=== PATIENT | male | born 1950 | race African-American/Black ===

== ENCOUNTER → 2016-10-30 | Outpatient (CLI) | payer OTHER, MEDICARE ==
[2016-11-01 10:23] LABS: FREE PSA/PSA RATIO 15.7 % (.); PSA FREE 4.36 ng/mL; PSA TOTAL 27.7 ng/mL (0.0-4.0)
== END | disposition home or self-care (01) ==
LOC: LAB 16:04
PROVIDERS: ATTEND Urology
DX: R97.20 Elevated prostate specific antigen [PSA] (principal)
CPT/HCPCS: 36415; 84153; 84154

== ENCOUNTER → 2017-01-15 | Outpatient (CLI) | payer OTHER, MEDICARE | END | disposition home or self-care (01) | LOC: LAB 12:28 | PROVIDERS: ATTEND Psychiatry & Neurology Neurology | DX: I63.9 Cerebral infarction, unspecified (principal) | CPT/HCPCS: 36415; 82607; 82947; 84443; 85049 ==

== ENCOUNTER → 2017-10-21 | Outpatient (CLI) | payer MEDICARE, OTHER ==
[2017-10-21 16:39] LABS: CREATINE KINASE 232 U/L (39-308)
[2017-10-21 16:52] LABS: THYROID STIM HORMONE (TSH) 0.909 uIU/mL (0.358-3.74)
[2017-10-21 16:54] LABS: VITAMIN-B12 841 pg/mL (247-911)
[2017-10-21 17:17] LABS: AMPHETAMINE/METHAMPHETAMINE NEG (NEG); BARBITURATES NEG (NEG); BENZODIAZEPINES NEG (NEG); CANNABINOIDS NEG (NEG); COCAINE NEG (NEG); ETHANOL, URINE NEG (NEG); METHADONE NEG (NEG); OPIATES NEG (NEG); PHENCYCLIDINE NEG (NEG)
== END | disposition home or self-care (01) ==
LOC: LAB 16:08
DX: R53.1 Weakness (principal); Z86.73 Personal history of transient ischemic attack (TIA), and cerebral infarction without residual deficits; Z79.899 Other long term (current) drug therapy
CPT/HCPCS: 36415; 80307; 82306; 82550; 82607; 84443

== ENCOUNTER → 2017-10-29 | Outpatient (CLI) | payer MEDICARE, OTHER | END | disposition home or self-care (01) | LOC: MRI 15:40 | DX: R53.1 Weakness (principal); Z86.73 Personal history of transient ischemic attack (TIA), and cerebral infarction without residual deficits | CPT/HCPCS: 70551 ==

== ENCOUNTER → 2017-11-05 | Outpatient (CLI) | payer MEDICARE, OTHER | END | disposition home or self-care (01) | LOC: RT 10:12 | DX: R41.3 Other amnesia (principal) | CPT/HCPCS: 95816 ==

== ENCOUNTER → 2018-05-04 | Outpatient (CLI) | payer MEDICARE, OTHER ==
[2018-05-04 16:38] LABS: FREE T4 0.85 ng/dL (0.76-1.46); THYROID STIM HORMONE (TSH) 1.317 uIU/mL (0.358-3.74)
[2018-05-04 16:40] LABS: ALBUMIN 3.5 g/dL (3.4-5.0); CALCIUM 9.6 mg/dL (8.5-10.1); CREATININE 1.3 mg/dL (0.7-1.3); POTASSIUM 4.3 mmol/L (3.5-5.1); TOTAL BILIRUBIN 0.2 mg/dL (0.2-1.0); TOTAL PROTEIN 6.9 g/dL (6.4-8.2)
[2018-05-04 17:53] LABS: BARBITURATES NEG (NEG); BENZODIAZEPINES NEG (NEG); CANNABINOIDS NEG (NEG); COCAINE NEG (NEG); METHADONE NEG (NEG); OPIATES NEG (NEG); PHENCYCLIDINE NEG (NEG)
[2018-05-04 17:56] LABS: AMPHETAMINE/METHAMPHETAMINE NEG (NEG)
== END | disposition home or self-care (01) ==
LOC: LAB 15:39
PROVIDERS: ATTEND Psychiatry & Neurology Neurology
DX: R53.1 Weakness (principal); R41.3 Other amnesia; Z86.73 Personal history of transient ischemic attack (TIA), and cerebral infarction without residual deficits; Z79.899 Other long term (current) drug therapy
CPT/HCPCS: 36415; 80053; 80307; 82550; 82607; 84439; 84443; G0479

== ENCOUNTER → 2018-11-13 | Outpatient (CLI) | payer MEDICARE, OTHER ==
--- NOTE | 2018-11-30 19:30 | EEG ---
DATE OF SERVICE: 11/13/2018 EEG NUMBER: [id number]. OBJECTIVE: This is a 68-year-old -[place] male patient with history of memory loss. EEG was requested to evaluate cerebral activity and help rule out seizure. METHODS: Twenty electrodes were applied according to the international 10-20 electrode placement system. EKG monitoring, hyperventilation, intermittent photic stimulation, monopolar and bipolar montages are routinely utilized. The record was obtained on a digital system with video monitoring. FINDINGS: 1. Background: The patient was recorded in the awake, drowsy, and sleep states. The overall background amplitude is 10-40 microvolts. A posterior dominant rhythm of 7-8 Hz is observed. 2. Abnormalities: No specific epileptiform discharge or electrographic seizure is seen. No focal or diffuse slowing. 3. Activation: Hyperventilation was not performed because the patient did not follow the commands. Intermittent photic stimulation was performed with photic driving. IMPRESSION: This electroencephalogram is a mildly abnormal study for the awake, drowsy, and sleep states. The posterior dominant rhythm of 7-8 Hz is mildly slow for age. No focal, lateralizing, specific epileptiform discharge or electrographic seizure is seen. MELISSA ROBERTS MD DR: Mable JOB#: [id number] / [id number] DONNY
== END | disposition home or self-care (01) ==
LOC: RT 09:10
PROVIDERS: ATTEND Psychiatry & Neurology Neurology
DX: R41.3 Other amnesia (principal)
CPT/HCPCS: 95816

== ENCOUNTER → 2019-02-10 | Outpatient (CLI) | payer MEDICARE, OTHER ==
--- NOTE | 2019-02-10 16:13 | RAD ---
CERVICAL SPINE WO CONTRAST DATE: 02/10/2019 2:45 PM INDICATION: Right-sided weakness TECHNIQUE: Multiplanar multisequence magnetic resonance imaging of the cervical spine was performed without administration of intravenous contrast using the standard cervical spine protocol. COMPARISON: None. FINDINGS: Trace retrolisthesis at C3-4. No acute fracture. Mild to moderate multilevel degenerative disc desiccation and disc height loss. No marrow replacing process to suggest malignancy. The spinal cord is normal in signal intensity. On the limited views of the cranial cavity and brain, the cerebellum and leslie have normal morphology and signal characteristics. No Chiari malformation. No soft tissue abnormality. Normal signal voids are present in the vertebral arteries. C2-3: No significant spinal canal stenosis or neural foraminal narrowing. C3-4: Disc osteophyte complex. Uncovertebral hypertrophy. Ligamentum flavum thickening. Moderate spinal stenosis. Mild bilateral neural foraminal narrowing. C4-5: Disc osteophyte compresses. Uncovertebral hypertrophy. Mild right and moderate left neural foraminal narrowing. Mild to moderate spinal stenosis. C5-6: Disc osteophyte complex with right paracentral protrusion which abuts and deforms the ventral cord. Uncovertebral hypertrophy. Ligamentum flavum thickening. Moderate spinal stenosis. Mild bilateral neural foraminal narrowing. C6-7: No significant spinal canal stenosis or neural foraminal narrowing. C7-T1: No significant spinal canal stenosis or neural foraminal narrowing. IMPRESSION: Cervical spondylosis, detailed level by level above. Electronically signed by: Leonides Farr MD (02/10/2019 4:10 PM) [id number]
== END | disposition home or self-care (01) ==
LOC: MRI 14:45
PROVIDERS: ATTEND Psychiatry & Neurology Neurology
DX: M47.812 Spondylosis without myelopathy or radiculopathy, cervical region (principal); M48.02 Spinal stenosis, cervical region; M25.78 Osteophyte, vertebrae; M89.38 Hypertrophy of bone, other site
CPT/HCPCS: 72141

== ENCOUNTER → 2019-05-31 | Outpatient (CLI) | payer MEDICARE, OTHER ==
[~2019-05-31] MED LIST: IOHEXOL 300 MG/ML 50 ML VIAL. IT ONE; LIDOCAINE 1% Multi-Dose 20 ML VIAL. ID ONE
--- NOTE | 2019-05-31 13:44 | KCIC ---
Cervical myelogram History: Cervical radiculopathy Technique: Patient was informed of the risks to include pain, infection, bleeding, seizures, allergic reaction, nerve root injury. All questions were answered. Patient signed a written consent form for a cervical myelogram. The patient was placed in a prone oblique position. The patient was prepped and draped in the usual sterile fashion. 1% lidocaine was utilized for local anesthesia at the anticipated site of puncture of the right L2-L3 interlaminar space. A 19-gauge guiding needle was advanced into the soft tissues. Through the guiding needle, a 25 gauge Lulu needle was advanced until there was return of cerebral spinal fluid. Approximately 10 cc [id number]-[id number] were then injected during fluoroscopic visualization. The needles were removed. Patient was repositioned so as to allow for the flow of contrast into the cervical spine. The patient was then transferred to the CT department for CT examination of the cervical spine. There were no immediate complications. Fluoroscopy time: 40 seconds, 11 images Findings: There was no evidence of myelographic block. There is multilevel cervical facet degenerative change. There is degenerative disc disease greatest at C3-4 and C4-5 and to lesser degree at C5-C6. There is very minimal posterior subluxation C3 relative to C4 and C4 relative to C5, anterior extradural defects at the levels. There is also anterior extradural defect at C5-C6. Note is made of right lateral extradural defect at the L4-5 level as seen on the injection image. Impression: 1. There is cervical degenerative disc disease greatest C3-4 and C4-5 and to lesser degree at C5-6, anterior extradural defects at these levels. 2. There is multilevel cervical facet degenerative change. Electronically signed by: Leonides London MD (05/31/2019 1:41 PM) [email or web address]
--- NOTE | 2019-05-31 14:43 | KCIC ---
Cervical spine CT without contrast History: Stenosis, neck stiffness, spondylosis Technique: Noncontrast CT imaging was performed of the cervical spine. Multiplanar images are reviewed. Exposure: One or more of the following individualized dose reduction techniques were utilized for this examination: 1. Automated exposure control 2. Adjustment of the mA and/or kV according to patient size 3. Use of iterative reconstruction technique. Comparison: February 10, 2019 MRI cervical spine exam Findings: Cervical vertebral body stature is maintained. Cervical cord caliber is within normal limits. There is minimal posterior subluxation C3 relative to C4. There is fairly advanced degenerative disc disease C4-5 and C3-4 and to lesser degree at C5-C6. There is adequate alignment of the lateral masses C1 relative to C2. There is mild dextroscoliosis of the cervical spine. Occipital condylar- C1 articulation is maintained. Atlantoaxial distance is within normal limits. Poorly evaluated, there is some heterogeneity of the thyroid gland, difficult to exclude some nodularity. There is atherosclerotic calcification of the carotid arteries in the neck bilaterally. C2-C3: Spinal canal and neural foramina are adequate. C3-C4: There is minimal disc osteophyte complex superimposed on the posteriorly subluxed C3 vertebral body margin, central canal narrowed to about 8 mm. There is mild to moderate facet degenerative change bilaterally. There is mild bilateral uncovertebral degenerative change. There is ppey-mz-tqiukdui narrowing of the right neural foramen, left neural foramen overall adequate. C4-C5: There is minimal disc osteophyte complex. Central canal is minimally narrowed about 9 mm. There is mild to moderate facet degenerative change bilaterally. There is left uncovertebral degenerative change. There is severe narrowing of the left neural foramen, minimal narrowing of the right neural foramen. C5-6: There is minimal disc osteophyte complex and bulge, mild indentation upon the ventral thecal sac greatest centrally and in the right lateral recess. Central canal is minimally narrowed about 9 mm also mild right lateral recess stenosis. There is moderate bilateral facet hypertrophic change. There is mild uncovertebral degenerative change. Right neural foramen is adequate. There is mild narrowing of the left neural foramen. C6-7: Spinal canal is adequate. There is bilateral facet degenerative change. Neural foramina are not significantly narrowed. C7-T1: Spinal canal and neural foramina are adequate. Impression: 1. There is mild spinal stenosis at C3-4 and to a somewhat lesser degree at C4-5 and C5-6 as described. There is fairly advanced degenerative disc disease at C3-4 and C4-5 and to lesser degree at C5-6 with spondylosis at the same levels. 2. There is multilevel facet and uncovertebral degenerative change. 3. There is severe narrowing of the left C4-5 neural foramen, kena-oy-oictxzqb narrowing on the right at C3-4, minimal narrowing on the left at C5-C6 and on the right at C4-C5. 4. There is mild dextroscoliosis of the cervical spine. There is minimal posterior subluxation C3 relative to C4. Electronically signed by: Leonides London MD (05/31/2019 2:40 PM) [facility]
== END | disposition home or self-care (01) ==
LOC: KCIC 11:14
PROVIDERS: ATTEND Neurological Surgery
DX: M48.02 Spinal stenosis, cervical region (principal); M50.121 Cervical disc disorder at C4-C5 level with radiculopathy
CPT/HCPCS: 62302; 72126; Q9967; 72240

== ENCOUNTER → 2019-11-30 | Outpatient (CLI) | payer MEDICARE, OTHER ==
[~2019-11-30] MED LIST changes: +GADOTERATE 7.5 MMOL/15ML VIAL. IVP ONE; -IOHEXOL 300 MG/ML 50 ML VIAL. IT ONE; -LIDOCAINE 1% Multi-Dose 20 ML VIAL. ID ONE
[2019-11-30 13:00] LABS: CREATININE 1.4 mg/dL (0.7-1.3); GFR 60.4
--- NOTE | 2019-11-30 14:36 | RAD ---
MRI Lumbar Spine without contrast History: Myelopathy, unsteady gait, stiffness Technique: Multiplanar, multi sequential noncontrast MR imaging was performed of the lumbar spine. Comparison: None Findings: Lumbar vertebral body stature is maintained. There is posterior subluxation L5 relative S1 by about 5 mm. There is moderate L5-S1 degenerative disc disease. Conus terminates near L1. There is likely small hemangioma of the L3 vertebral body. There are small hemangiomas of L3 and L1 vertebral bodies. L1-L2: Spinal canal and neural foramina are adequate. L2-L3: There is mild buckling of the ligamentum flavum and facet hypertrophic change. There is mild posterior narrowing of the left neural foramen, right neural foramen adequate. There is mild narrowing of the far left lateral recess from posteriorly. L3-L4: There is nzyb-jt-ukhbokiu buckling of the ligamentum flavum. There is negligible disc osteophyte complex. There is minimal narrowing of the far left lateral recess. There is anterior annular tear. There is mild narrowing of the left neural foramen by disc osteophyte complex and also posteriorly by facet and ligamentum flavum. Right neural foramen is overall adequate. L4-L5: There is shallow broad protrusion up to about 2 mm AP. There is mild buckling of the ligamentum flavum. There is moderate narrowing of the lateral recesses bilaterally, mild narrowing of the central canal. There is mild narrowing of the right neural foramen, left neural foramen adequate. L5-S1: There is broad disc osteophyte complex superimposed on the posteriorly subluxed L5 vertebral body margin. There is mild buckling of the ligamentum flavum. There is moderate narrowing of the right lateral recess and to a somewhat lesser degree on the left, central canal overall adequate. There is iken-ow-majzofiv neural foramina compromise bilaterally by disc osteophyte complex and facet. Impression: 1. There is moderate lateral recess stenosis bilaterally at L4-5 and to a somewhat lesser degree right greater than left at L5-S1. 2. There is moderate L5-S1 degenerative disc disease. 3. There is mild posterior subluxation L5 relative to S1. 4. There is dayw-he-udlwgxjo neural foramina compromise bilaterally at L5-S1, minimal narrowing on the right at L4-5 and on the left at L3-4 and L2-3. Electronically signed by: Leonides London MD (11/30/2019 2:32 PM) [id number]
--- NOTE | 2019-11-30 14:51 | RAD ---
THORACIC SPINE WO/W CONTRAST History: Unsteady gait, stiffness, myelopathy. TECHNIQUE: Pre and postcontrast, multiplanar, multi sequential MR imaging was performed of the thoracic spine. Comparison: None. Findings: There is no expansile thoracic cord signal change. There is appearance of some amorphous increased T2 signal of the mid to inferior thoracic cord such as T6-T10 with questionable associated subtle increased STIR signal. There is no enhancement of the thoracic cord. There is no significant thoracic spinal stenosis. Facet degenerative change contributes to mild posterior narrowing of the right T11-12 neural foramen. Intervertebral disc spaces are relatively maintained, mild disc desiccation greatest of mid to inferior thoracic levels. There is mild superior thoracic levoscoliosis. There is some distention of the visualized proximal to mid esophagus. Impression: 1. There is no expansile thoracic cord signal change, some subtle amorphous increased T2 and STIR signal of the mid to inferior thoracic cord which could be seen with myelitis if true finding. There is no thoracic spinal stenosis. 2. There is some distention of the proximal to mid esophagus. Electronically signed by: Leonides London MD (11/30/2019 2:48 PM) [place] [id number]
== END | disposition home or self-care (01) ==
LOC: MRI 12:19
PROVIDERS: ATTEND Psychiatry & Neurology Neurology
DX: M51.37 Other intervertebral disc degeneration, lumbosacral region (principal); M48.07 Spinal stenosis, lumbosacral region; M51.26 Other intervertebral disc displacement, lumbar region; M25.78 Osteophyte, vertebrae; M48.02 Spinal stenosis, cervical region; M53.2X7 Spinal instabilities, lumbosacral region
CPT/HCPCS: 36415; 72148; 72157; 82565; A9575